=== PATIENT | female | born 1975 | race Caucasian/White ===

== ENCOUNTER 2017-09-12 18:50 | Emergency (ER) | payer SELFPAY ==
[2017-09-12] MEDS ORDERED: ONDANSETRON 4 MG TAB.RAPDIS PO ONE (20:58)
--- NOTE | 2017-09-12 20:59 | ER Document Report ---
HPI - HPI Patient complains to provider of: Nausea, vomiting diarrhea, need for work note Onset: This morning Onset/Duration: Gradual Quality of pain: No pain Pain Level: Denies Context: Patient presents complaining of nausea vomiting and diarrhea that started today. Patient states she has vomited 4 times and had diarrhea 5 times today. Last emesis was 6 hours ago. Patient does complain of some mild left lower back pain and some urinary frequency. Patient denies any fever. Patient denies any abdominal tenderness. 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 Associated Symptoms: Diarrhea, Nausea, Vomiting. denies: Chest pain, Fever Exacerbated by: Denies Relieved by: Denies Similar symptoms previously: No Recently seen / treated by doctor: No - ROS ROS below otherwise negative: Yes Systems Reviewed and Negative: Yes All other systems reviewed and negative - CONSTITUTIONAL Constitutional: DENIES: Fever, Chills - RESPIRATORY Respiratory: DENIES: Trouble Breathing, Coughing - GASTROINTESTINAL Gastrointestinal: REPORTS: Nausea, Patient vomiting, Diarrhea. DENIES: Abdominal Pain, Constipation, Black / Bloody Stools - URINARY Urinary: REPORTS: Frequency. DENIES: Dysuria, Urgency - MUSCULOSKELETAL Musculoskeletal: REPORTS: Back Pain. DENIES: Extremity pain Past Medical History - General Information source: Patient - Social History Smoking Status: Current Every Day Smoker Smoking Education Provided: Yes - For at least 3 minutes Frequency of alcohol use: None Drug Abuse: None Occupation: [employer] Lives with: Friend Family History: Reviewed & Not Pertinent Patient has suicidal ideation: No Patient has homicidal ideation: No - Past Medical History Cardiac Medical History: Reports: Hx Hypertension Renal/ Medical History: Denies: Hx Peritoneal Dialysis Musculoskeltal Medical History: Reports Hx Arthritis - Rheumatoid arthritis Past Surgical History: Reports: Hx Gynecologic Surgery, Hx Tubal Ligation Vertical Provider Document - CONSTITUTIONAL Agree With Documented VS: Yes Exam Limitations: No Limitations General Appearance: WD/WN, No Apparent Distress - INFECTION CONTROL TRAVEL OUTSIDE OF THE [place] IN LAST 30 DAYS: No - HEENT HEENT: Atraumatic, Normocephalic - NECK Neck: Normal Inspection, Supple - RESPIRATORY Respiratory: Breath Sounds Normal, No Respiratory Distress O2 Sat by Pulse Oximetry: 98 - CARDIOVASCULAR Cardiovascular: Regular Rate, Regular Rhythm, No Murmur - GI/ABDOMEN Gastrointestinal: Abdomen Soft, Abdomen Non-Tender, No Organomegaly, Normal Bowel Sounds - BACK Back: Normal Inspection. negative: CVA Tenderness-Right, CVA Tenderness-Left - MUSCULOSKELETAL/EXTREMETIES Musculoskeletal/Extremeties: CLARISSA MILLER - NEURO Level of Consciousness: Awake, Alert, Appropriate Motor/Sensory: No Motor Deficit - DERM Integumentary: Warm, Dry, No Rash Course - Re-evaluation Re-evalutation: 09/12/17 Patient without any abdominal tenderness. Patient states primary reason for visit tonight was for a note for her employer. Patient nontoxic in appearance. Discussed worsening symptoms that patient should return immediately for. Patient verbalized understanding and is agreeable with plan of care. - Vital Signs Vital signs: Temp Pulse Resp BP Pulse Ox 98 F 99 16 144/86 H 98 09/12/17 19:10 09/12/17 19:10 09/12/17 19:10 09/12/17 19:10 09/12/17 19:10 - Laboratory Laboratory results interpreted by me: 09/12/17 21:53 Labs- Entire Visit 09/12/17 20:10 Urine Color YELLOW Urine Appearance SLIGHTLY-CLOUDY Urine pH 5.0 Ur Specific [place] 1.021 Urine Protein NEGATIVE Urine Glucose (UA) NEGATIVE Urine Ketones NEGATIVE Urine Blood NEGATIVE Urine Nitrite NEGATIVE Urine Bilirubin NEGATIVE Urine Urobilinogen NEGATIVE Ur Leukocyte Esterase NEGATIVE Urine WBC (Auto) 1 Urine RBC (Auto) 1 Squamous Epi Cells Auto 1 Urine Mucus (Auto) RARE Urine Ascorbic Acid NEGATIVE Discharge - Discharge Clinical Impression: Hx of essential hypertension, Nausea vomiting and diarrhea Condition: Stable Disposition: HOME, SELF-CARE Instructions: Antinausea Medication ([facility]), Diarrhea, Nonspecific ([facility]), Viral Syndrome ([facility]), Vomiting ([facility]) Additional Instructions: Return immediately for any new or worsening symptoms Followup with your primary care provider, call tomorrow to make a followup appointment Stay well-hydrated Prescriptions: Promethazine HCl [Phenergan 25 mg Tablet] 25 mg PO Q6H PRN #12 tablet PRN Reason: Forms: Return to Work Referrals: CHAPINCITO GAY [Primary Care Provider] - 09/15/17
[2017-09-12 21:44] LABS: APPEARANCE,URINE SLIGHTLY-CLOUDY; BILIRUBIN,URINE NEGATIVE (NEGATIVE); GLUCOSE, URINE NEGATIVE (NEGATIVE); KETONES,URINE NEGATIVE (NEGATIVE); LEUKOCYTE ESTERASE,URINE NEGATIVE (NEGATIVE); NITRITE,URINE NEGATIVE (NEGATIVE); PROTEIN,URINE NEGATIVE (NEGATIVE); URINE SPECIFIC GRAVITY 1.021; UROBILINOGEN,URINE NEGATIVE mg/dL (<2.0)
[2017-09-12 22:05] VITALS: BP 126/86
== END 2017-09-12 22:07 | disposition home or self-care (01) ==
LOC: ER 18:50
DX: I10 Essential (primary) hypertension (principal); R11.2 Nausea with vomiting, unspecified; R19.7 Diarrhea, unspecified; M54.5 Low back pain; R35.0 Frequency of micturition; F17.200 Nicotine dependence, unspecified, uncomplicated
CPT/HCPCS: 99284; 81001; S0119

== ENCOUNTER 2018-03-26 11:19 | Emergency (ER) | payer SELFPAY ==
[2018-03-26 11:27] VITALS: BP 112/65
--- NOTE | 2018-03-26 11:55 | ER Document Report ---
ED General - General Chief Complaint: Flu Symptoms Stated Complaint: FLU LIKE SYMPTOMS Time Seen by Provider: 03/26/18 11:40 Notes: Chief complaint: Viral syndrome History of complain:( obtained from----patient) 42 years old female presents today with last 2-3 day history of general body aches and pain nauseous vomited couple of times and also had some loose stools 3. She missed her work. Needed a work note to go back. Denies any fever but had chills on and off. Denies any cough chest pain shortness of breath. Denies any abdominal pain. Denies any dysuria frequency urgency. Onset: Gradual Duration: 3 days Severity: Mild Quality: Dull Context: Viral infection Exacerbating factor and relieving factors: REVIEW OF SYSTEMS: CONSTITUTIONAL : Denies fever, chills, or sweats. Denies recent illness. EENT: Denies eye, ear, throat, or mouth pain or symptoms. Denies nasal or sinus congestion or discharge. Denies throat, tongue, or mouth swelling or difficulty swallowing. CARDIOVASCULAR: Denies chest pain. Denies palpitations or racing or irregular heart beat. Denies ankle edema. RESPIRATORY: Denies cough, cold, or chest congestion. Denies shortness of breath, difficulty breathing, or wheezing. GASTROINTESTINAL: Denies distention. Denies nausea, vomiting, or diarrhea. Denies blood in vomitus, stools, or per rectum. Denies black, tarry stools. Denies constipation. GENITOURINARY: Denies difficulty urinating, painful urination, burning, frequency, blood in urine, or discharge. FEMALE GENITOURINARY: Denies vaginal bleeding, heavy or abnormal periods, irregular periods. Denies vaginal discharge or odor. MUSCULOSKELETAL: Denies back or neck pain or stiffness. Denies joint pain or swelling. SKIN: Denies rash, lesions or sores. HEMATOLOGIC : Denies easy bruising or bleeding. LYMPHATIC: Denies swollen, enlarged glands. NEUROLOGICAL: Denies confusion or altered mental status. Denies passing out or loss of consciousness. Denies dizziness or lightheadedness. Denies headache. Denies weakness or paralysis or loss of use of either side. Denies problems with gait or speech. Denies sensory loss, numbness, or tingling. Denies seizures. PSYCHIATRIC: Denies anxiety or stress. Denies depression, suicidal ideation, or homicidal ideation. ALL OTHER SYSTEMS REVIEWED AND NEGATIVE. PHYSICAL EXAMINATION: GENERAL: Well-appearing, well-nourished and in no acute distress. Appears comfortable not in any major distress HEAD: Atraumatic, normocephalic. EYES: Pupils equal round and reactive to light, extraocular movements intact, conjunctiva are normal. ENT: Nares patent, oropharynx clear without exudates. Moist mucous membranes. NECK: Normal range of motion, supple without lymphadenopathy LUNGS: Breath sounds clear to auscultation bilaterally and equal. No wheezes rales or rhonchi. HEART: Regular rate and rhythm without murmurs ABDOMEN: Soft, nontender, nondistended abdomen. No guarding, no rebound. No masses appreciated. Examination of genitals-deferred Musculoskeletal: Normal range of motion, no pitting or edema. No cyanosis. NEUROLOGICAL: Cranial nerves grossly intact. Normal speech, normal gait. Normal sensory, motor exams PSYCH: Normal mood, normal affect. SKIN: Warm, Dry, normal turgor, no rashes or lesions noted. Dictation was performed using [employer] voice recognition software TRAVEL OUTSIDE OF THE [place] IN LAST 30 DAYS: No - HPI Notes: Dictated - Related Data Allergies/Adverse Reactions: cephalexin [From Keflex] Allergy (Verified 03/26/18 11:40) amoxicillin Adverse Reaction (Verified 03/26/18 11:40) Past Medical History - Social History Smoking Status: Current Every Day Smoker Chew tobacco use (# tins/day): No Frequency of alcohol use: Occasional Drug Abuse: None Family History: Reviewed & Not Pertinent Patient has suicidal ideation: No Patient has homicidal ideation: No - Past Medical History Cardiac Medical History: Reports: Hx Hypertension Renal/ Medical History: Denies: Hx Peritoneal Dialysis Musculoskeltal Medical History: Reports Hx Arthritis - Rheumatoid arthritis Past Surgical History: Reports: Hx Gynecologic Surgery, Hx Tubal Ligation Review of Systems - Review of Systems Notes: Dictated Physical Exam - Vital signs Vitals: Temp Pulse Resp BP Pulse Ox 99.0 F 99 18 112/65 98 03/26/18 11:26 03/26/18 11:26 03/26/18 11:26 03/26/18 11:26 03/26/18 11:26 - Notes Notes: Dictated Course - Re-evaluation Re-evalutation: 03/26/18 11:48 Been asked to drink lots of water, and given work note - Vital Signs Vital signs: Temp Pulse Resp BP Pulse Ox 99.0 F 99 18 112/65 98 03/26/18 11:26 03/26/18 11:26 03/26/18 11:26 03/26/18 11:26 03/26/18 11:26 Discharge - Discharge Clinical Impression: Viral infection Condition: Fair Disposition: HOME, SELF-CARE Instructions: Viral Syndrome ([facility]) Prescriptions: Ondansetron [Zofran Odt 4 mg Tablet] 1 - 2 tab PO Q4H PRN #15 tab.rapdis PRN Reason: For Nausea/Vomiting Referrals: CHAPINCITO GAY [Primary Care Provider] - Follow up as needed
== END 2018-03-26 11:54 | disposition home or self-care (01) ==
LOC: ER 11:19
DX: B34.9 Viral infection, unspecified (principal); R11.2 Nausea with vomiting, unspecified; R19.4 Change in bowel habit; R68.83 Chills (without fever); R52 Pain, unspecified; F17.200 Nicotine dependence, unspecified, uncomplicated; I10 Essential (primary) hypertension; Z88.1 Allergy status to other antibiotic agents
CPT/HCPCS: 99283

== ENCOUNTER 2018-06-22 14:26 | Emergency (ER) | payer SELFPAY ==
--- NOTE | 2018-06-22 16:02 | ER Document Report ---
ED Medical Screen (RME) - General Chief Complaint: Dizziness Stated Complaint: PAIN ALL OVER Time Seen by Provider: 06/22/18 16:02 Notes: 42-year-old female to the emergency department for heart racing, fever, chills, dizziness, chest pain bilaterally and abdominal pain all over. Symptoms have been getting worse over the last 2 days. Denies any dysuria or difficulty with urination. No recent surgeries. Has a history of rheumatoid arthritis but not on any biologic agents. I have greeted and performed a rapid initial assessment of this patient. A comprehensive ED assessment and evaluation of the patient, analysis of test results and completion of the medical decision making process will be conducted by additional ED providers. TRAVEL OUTSIDE OF THE [place] IN LAST 30 DAYS: No - Related Data Allergies/Adverse Reactions: cephalexin [From Keflex] Allergy (Verified 06/22/18 14:27) amoxicillin Adverse Reaction (Verified 06/22/18 14:27) Past Medical History - General Information source: Patient - Past Medical History Cardiac Medical History: Reports: Hx Hypertension Renal/ Medical History: Denies: Hx Peritoneal Dialysis Musculoskeltal Medical History: Reports Hx Arthritis - Rheumatoid arthritis Past Surgical History: Reports: Hx Gynecologic Surgery, Hx Tubal Ligation Review of Systems - Review of Systems Notes: Review of systems positive for the following: Fever, chills, sweats, chest pain , abdominal pain, dizziness, tachycardia Physical Exam - Vital signs Vitals: Temp Pulse Resp BP Pulse Ox 101.3 F H 139 H 24 H 130/72 H 97 06/22/18 14:31 06/22/18 14:31 06/22/18 14:31 06/22/18 14:31 06/22/18 14:31 Interpretation: Tachycardic, Febrile - Respiratory Respiratory status: No respiratory distress Chest status: Nontender Breath sounds: Normal Chest palpation: Normal - Cardiovascular Rhythm: Tachycardia Heart sounds: Normal auscultation Murmur: No - Abdominal Inspection: Normal Distension: No distension Bowel sounds: Normal Tenderness: Tender - All diffuse tenderness Organomegaly: No organomegaly Course - Vital Signs Vital signs: Temp Pulse Resp BP Pulse Ox 101.3 F H 139 H 24 H 130/72 H 97 06/22/18 14:31 06/22/18 14:31 06/22/18 14:31 06/22/18 14:31 06/22/18 14:31
[2018-06-22] MEDS ORDERED: KETOROLAC TROMETHAMINE INJ/PF 30 MG/1 ML SDV IV ONE (16:12)
[2018-06-22] MEDS: RINGERS SOLUTION,LACTATED 1,000 ML IV PRN ×2 (16:48→19:36)
[2018-06-22 16:58] LABS: ABSOLUTE BASOPHILS # (AUTO) 0.1 10^3/uL (0.0-0.2); ABSOLUTE LYMPHOCYTES (AUTO) 1.4 10^3/uL (0.5-4.7); ABSOLUTE MONOCYTES (AUTO) 1.4 10^3/uL (0.1-1.4); ABSOLUTE NEUT (AUTO) 11.5 10^3/uL (1.7-8.2); BASOPHILS % (AUTO) 0.4 % (0-2); EOSINOPHILS % (AUTO) 0.1 % (0-6); HEMATOCRIT 43.1 % (36.0-47.0); HEMOGLOBIN 15.2 g/dL (12.0-15.5); LYMPHOCYTES % (AUTO) 9.9 % (13-45); MEAN CORPUSCULAR HEMOGLOBIN 30.9 pg (27.0-33.4); MEAN CORPUSCULAR HGB CONC 35.2 g/dL (32.0-36.0); MEAN CORPUSCULAR VOLUME 88 fl (80-97); MONOCYTES % (AUTO) 9.6 % (3-13); PLATELET COUNT 257 10^3/uL (150-450); RED BLOOD COUNT 4.91 10^6/uL (3.72-5.28); TOTAL CELLS COUNTED % (AUTO) 100 %; WHITE BLOOD COUNT 14.4 10^3/uL (4.0-10.5)
[2018-06-22 17:24] LABS: ALANINE AMINOTRANSFERASE 10 U/L (9-52); ALKALINE PHOSPHATASE 71 U/L (38-126); ANION GAP 12 (5-19); ASPARTATE AMINO TRANSFERASE 19 U/L (14-36); BILIRUBIN,DIRECT 0.4 mg/dL (0.0-0.4); BILIRUBIN,TOTAL 0.6 mg/dL (0.2-1.3); BLOOD UREA NITROGEN 9 mg/dL (7-20); CALCIUM 9.2 mg/dL (8.4-10.2); CARBON DIOXIDE 23 mmol/L (22-30); CHLORIDE 100 mmol/L (98-107); GLUCOSE 112 mg/dL (75-110); LIPASE 23.1 U/L (23-300); POTASSIUM 3.5 mmol/L (3.6-5.0); SODIUM 134.8 mmol/L (137-145); TOTAL PROTEIN 8.2 g/dL (6.3-8.2)
--- NOTE | 2018-06-22 17:50 | RADIOLOGY REPORT (SQ) ---
EXAM DESCRIPTION: ACUTE ABDOMEN SERIES COMPLETED DATE/TIME: 06/22/2018 5:17 pm REASON FOR STUDY: abd pain,chest pain COMPARISON: None. NUMBER OF VIEWS: One view. TECHNIQUE: Supine radiographic image of the abdomen acquired. LIMITATIONS: None. FINDINGS: BOWEL GAS PATTERN: Non-obstructive bowel gas pattern. No dilated loops. CALCIFICATIONS: No suspicious calcifications. SOFT TISSUES: No gross mass or suggestion of organomegaly. HARDWARE: None in the abdomen. BONES: No acute fracture. No worrisome bone lesions. OTHER: No other significant finding. IMPRESSION: NO RADIOGRAPHIC EVIDENCE FOR ACUTE ABDOMINAL DISEASE. TECHNICAL DOCUMENTATION: JOB ID: [id number] [place]-72 2010 [employer]- All Rights Reserved Reading location - IP/workstation name: [email or web address]
[2018-06-22 19:03] LABS: APPEARANCE,URINE SLIGHTLY-CLOUDY; BILIRUBIN,URINE NEGATIVE (NEGATIVE); COLOR,URINE AMBER; GLUCOSE, URINE NEGATIVE (NEGATIVE); KETONES,URINE TRACE mg/dL (NEGATIVE); LEUKOCYTE ESTERASE,URINE LARGE (NEGATIVE); NITRITE,URINE POSITIVE (NEGATIVE); PROTEIN,URINE 30 mg/dL (NEGATIVE); URINE SPECIFIC GRAVITY 1.013
[2018-06-22] MEDS ORDERED: ACETAMINOPHEN 325 MG TABLET PO ONE (19:09)
[2018-06-22] MEDS ORDERED: CIPROFLOXACIN 400 MG/D5W RTU 400 MG/200 ML RTUPB IV ONE (19:22)
[2018-06-22 20:54] LABS: T.VAGINALIS (WET MOUNT) NO TRICHOMONAS SEEN; WBCS (WET MOUNT) FEW WBCS SEEN; YEAST (WET MOUNT) NO YEAST SEEN
[2018-06-22] MEDS ORDERED: NORMAL SALINE 1000 ML 1,000 ML IV ONE (21:16)
[2018-06-22] MEDS ORDERED: AZITHROMYCIN 250 MG TABLET PO ONE (22:04)
--- NOTE | 2018-06-22 22:11 | ER Document Report ---
ED General - General Chief Complaint: Dizziness Stated Complaint: PAIN ALL OVER Time Seen by Provider: 06/22/18 16:02 TRAVEL OUTSIDE OF THE [place] IN LAST 30 DAYS: No - HPI Patient complains to provider of: Feeling unwell Notes: Patient coming in for evaluation of fevers chills diffuse myalgias vaginal pain. Patient states ongoing for the last 2 days. Patient states decreased p.o. intake. Patient states recently moved to a new house approximately 1-2 months ago has a history of rheumatoid arthritis list of her medications at her old house. Patient denies any new pets recent antibiotics patient states she is sexually active at this time no history of STDs in the past. Patient denies any vaginal discharge or dysuria. Denies any flank pain specifically stating that she aches all over. Denies taking any Tylenol or Motrin today - Related Data Allergies/Adverse Reactions: cephalexin [From Keflex] Allergy (Verified 06/22/18 14:27) amoxicillin Adverse Reaction (Verified 06/22/18 14:27) Past Medical History - General Information source: Patient - Social History Smoking Status: Unknown if Ever Smoked Family History: Reviewed & Not Pertinent Patient has suicidal ideation: No Patient has homicidal ideation: No - Past Medical History Cardiac Medical History: Reports: Hx Hypertension Renal/ Medical History: Denies: Hx Peritoneal Dialysis Musculoskeletal Medical History: Reports Hx Arthritis - Rheumatoid arthritis Past Surgical History: Reports: Hx Gynecologic Surgery, Hx Tubal Ligation Review of Systems - Review of Systems Constitutional: Fever, Malaise, Weakness EENT: No symptoms reported Cardiovascular: No symptoms reported Respiratory: No symptoms reported Gastrointestinal: No symptoms reported Genitourinary: No symptoms reported Female Genitourinary: No symptoms reported Musculoskeletal: Muscle pain Skin: No symptoms reported Hematologic/Lymphatic: No symptoms reported Neurological/Psychological: No symptoms reported -: Yes All other systems reviewed and negative Physical Exam - Vital signs Vitals: Temp Pulse Resp BP Pulse Ox 101.3 F H 139 H 24 H 130/72 H 97 06/22/18 14:31 06/22/18 14:31 06/22/18 14:31 06/22/18 14:31 06/22/18 14:31 Interpretation: Normal - General General appearance: Appears well, Alert - HEENT Head: Normocephalic, Atraumatic Eyes: Normal Pupils: PERRL - Respiratory Respiratory status: No respiratory distress Chest status: Nontender Breath sounds: Normal Chest palpation: Normal - Cardiovascular Rhythm: Regular Heart sounds: Normal auscultation Murmur: No - Abdominal Inspection: Normal Distension: No distension Bowel sounds: Normal Tenderness: Nontender Organomegaly: No organomegaly - Genitourinary External exam: Normal Speculum exam: Cervix closed - Moderate amount of white discharge from cervix Vaginal bleeding: None Bimanuel exam: Normal - Back Back: Normal, Nontender - Extremities General upper extremity: Normal inspection, Nontender, Normal color, Normal ROM , Normal temperature General lower extremity: Normal inspection, Nontender, Normal color, Normal ROM , Normal temperature, Normal weight bearing. No: Shaq's sign - Neurological Neuro grossly intact: Yes Cognition: Normal Orientation: AAOx4 Drummond Coma Scale Eye Opening: Spontaneous Thomas Coma Scale Verbal: Oriented Thomas Coma Scale Motor: Obeys Commands Thomas Coma Scale Total: 15 Speech: Normal Motor strength normal: LUE, RUE, LLE, RLE Sensory: Normal - Psychological Associated symptoms: Normal affect, Normal mood - Skin Skin Temperature: Warm Skin Moisture: Dry Skin Color: Normal Course - Re-evaluation Re-evalutation: 06/22/18 23:57 Patient white count 14 a urinalysis showing signs significant for a urinary tract infection with no flank pain at this time do not feel patient has pyelonephritis. This pelvic examination does show a moderate amount of clear discharge from cervix concern for socially transmitted disease. Patient was given a dose of IV Cipro and 2 g of azithromycin as of the patient is allergic to Keflex and amoxicillin. 2 g of azithromycin should cover patient for gonorrhea and chlamydia. Ciprofloxacin should cover the patient for UTI. Patient's vital signs improved greatly after IV fluids and antipyretics. Patient able tolerate p.o. we will discharge home. - Vital Signs Vital signs: Temp Pulse Resp BP Pulse Ox 99.5 F 139 H 20 104/88 H 100 06/22/18 21:00 06/22/18 14:31 06/22/18 22:31 06/22/18 22:31 06/22/18 22:31 - Laboratory Result Diagrams: 06/22/18 16:43 06/22/18 16:43 Laboratory results interpreted by me: 06/22/18 06/22/18 06/22/18 16:43 16:43 18:04 WBC 14.4 H Seg Neutrophils % 80.0 H Lymphocytes % 9.9 L Absolute Neutrophils 11.5 H Sodium 134.8 L Potassium 3.5 L Glucose 112 H Urine Protein 30 H Urine Ketones TRACE H Urine Blood SMALL H Urine Nitrite POSITIVE H Urine Urobilinogen 2.0 H Ur Leukocyte Esterase LARGE H N.gonorrhoeae DNA (PCR) 06/22/18 20:25 WBC Seg Neutrophils % Lymphocytes % Absolute Neutrophils Sodium Potassium Glucose Urine Protein Urine Ketones Urine Blood Urine Nitrite Urine Urobilinogen Ur Leukocyte Esterase N.gonorrhoeae DNA (PCR) DETECTED H Discharge - Discharge Clinical Impression: Dehydration Fever Qualifiers: Fever type: unspecified Qualified Code(s): R50.9 - Fever, unspecified UTI (urinary tract infection) Qualifiers: Urinary tract infection type: site unspecified Hematuria presence: without hematuria Qualified Code(s): N39.0 - Urinary tract infection, site not specified Condition: Good Disposition: HOME, SELF-CARE Instructions: Ciprofloxacin ([facility]), Dehydration ([facility]), Fever ([facility]), Urinary Tract Infection ([facility]) Additional Instructions: Follow-up with your primary care physician. Return to ER symptoms worsen. Take medications as prescribed. Prescriptions: Ibuprofen [Motrin 600 mg Tablet] 600 mg PO Q8HP PRN #21 tablet PRN Reason: Ciprofloxacin HCl [Cipro 500 mg Tablet] 500 mg PO BID #20 tablet Ondansetron [Zofran Odt] 4 mg PO Q6 PRN #30 tab.rapdis PRN Reason: For Nausea/Vomiting Forms: Return to Work
[2018-06-22 22:28] LABS: CHLAM PCR NOT DETECTED (NOT DETECT); GON PCR DETECTED (NOT DETECT)
[2018-06-22 22:35] VITALS: BP 104/88
== END 2018-06-22 22:36 | disposition home or self-care (01) ==
LOC: ER 14:26
DX: E86.0 Dehydration (principal); N39.0 Urinary tract infection, site not specified; M79.1 Myalgia; R42 Dizziness and giddiness; R10.2 Pelvic and perineal pain; I10 Essential (primary) hypertension; Z88.3 Allergy status to other anti-infective agents; Z88.0 Allergy status to penicillin; Z98.51 Tubal ligation status
CPT/HCPCS: 99284; 96361; 96374; 36415; 87040; 87086; 87210; 83690; 85025; 81025; 87088; 80053; 81001; 87186; 87491; 87591; 83605; 74022; J1885; J7030; J7120; J0744

== ENCOUNTER 2019-01-17 22:46 | Emergency (ER) | payer SELFPAY ==
[2019-01-18] MEDS ORDERED: IBUPROFEN 600 MG TABLET PO ONE (01:09)
--- NOTE | 2019-01-18 02:03 | ER Document Report ---
ED Extremity Problem, Upper - General TRAVEL OUTSIDE OF THE [place] IN LAST 30 DAYS: No - General Chief Complaint: Arm Pain Stated Complaint: RIGHT ARM SWELLING/PAIN Time Seen by Provider: 01/18/19 00:06 Primary Care Provider: [facility] [Provider Group] - Follow up as needed Notes: Patient is a 43-year-old female presents to the emergency department for swelling and pain to her dorsal aspect of her right hand. Patient states tonight after work she noticed some generalized swelling noted to the dorsal aspect of her right hand. States since then the swelling has gotten worse as well as the pain has increased. Patient states she was lifting and moving a lot of things at work but is denying any known injury or trauma. Patient's denying any other complaints to include fever, numbness or tingling in any extremity. Past medical history: Rheumatoid arthritis Medications: None Allergies: Keflex, penicillin (PATRICE WALTER) - Related Data Allergies/Adverse Reactions: cephalexin [From Keflex] Allergy (Verified 01/17/19 23:59) amoxicillin Adverse Reaction (Verified 01/17/19 23:59) Penicillins Adverse Reaction (Verified 01/17/19 23:59) Past Medical History - General Information source: Patient - Social History Smoking Status: Unknown if Ever Smoked Family History: Reviewed & Not Pertinent Patient has suicidal ideation: No Patient has homicidal ideation: No - Past Medical History Cardiac Medical History: Reports: Hx Hypertension Renal/ Medical History: Denies: Hx Peritoneal Dialysis Musculoskeletal Medical History: Reports Hx Arthritis - Rheumatoid arthritis Past Surgical History: Reports: Hx Gynecologic Surgery, Hx Tubal Ligation Review of Systems - Review of Systems Constitutional: See HPI EENT: No symptoms reported Cardiovascular: No symptoms reported Respiratory: No symptoms reported Gastrointestinal: No symptoms reported Genitourinary: No symptoms reported Female Genitourinary: No symptoms reported Musculoskeletal: See HPI Skin: See HPI Hematologic/Lymphatic: No symptoms reported Neurological/Psychological: No symptoms reported Physical Exam - Vital signs Vitals: Temp Pulse Resp BP Pulse Ox 98.1 F 102 H 19 117/81 96 01/17/19 22:50 01/17/19 22:50 01/17/19 22:50 01/17/19 22:50 01/17/19 22:50 - Notes Notes: GENERAL: Alert, interacts well. No acute distress. HEAD: Normocephalic, atraumatic. EYES: Pupils equal, round, and reactive to light. Extraocular movements intact. ENT: Oral mucosa moist, tongue midline. NECK: Full range of motion. Supple. Trachea midline. LUNGS: Clear to auscultation bilaterally, no wheezes, rales, or rhonchi. No respiratory distress. HEART: Regular rate and rhythm. No murmur ABDOMEN: Soft, non-tender. Non-distended. Bowel sounds present in all 4 quadrants. EXTREMITIES: Moves all 4 extremities spontaneously. normal radial and dorsalis pedis pulses bilaterally. No cyanosis. Swelling and erythema noted dorsal aspect of right hand. Patient is able to make a fist and fully extend all 5 fingers on the right hand. Patient has full flexion extension of the right wrist. Also supination and pronation are intact. Superficial abrasion noted over the MCP joint middle finger dorsally. BACK: no cervical, thoracic, lumbar midline tenderness. No saddle anesthesia, normal distal neurovascular exam. NEUROLOGICAL: Alert and oriented x3. Normal speech. cranial nerves II through XI I grossly intact PSYCH: Normal affect, normal mood. SKIN: Warm, dry, normal turgor. No rashes or lesions noted. (PATRICE WALTER) Course - Re-evaluation Re-evalutation: Erythema and swelling did not appear to past wrist joint. X-rays reveal no signs of abnormalities or fractures. Discussed this case my attending Dr. Baires who agrees to treat this patient with oral antibiotics as the redness and swelling may be infectious in nature. Discussed close follow-up with primary care provider in the next 24-48 hours. Also discussed return precautions to the emergency room for wound recheck should she not be able to get up with her primary care provider. Patient is afebrile, stable for discharge. (PATRICE WALTER) 01/18/19 02:30 PA asked me to evaluate the patient's hand. The patient does have some swelling to the right hand. 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 She does have a small abrasion over the dorsum of the hand. There is no swelling redness or pain into the fingers itself. I do not suspect tenosynovitis. Patient has full flexion-extension of the fingers or hand without difficulty. Suspect she may have early signs of cellulitis of the hand therefore we will place her antibiotic. She does have a history of rheumatoid arthritis but says this is nothing at all like her previous rheumatoid arthritis flares. Encouraged her to return in 2 days we can reevaluate and make sure it is improving. Patient agrees with plan will be discharged home. Dictation of this chart was performed using voice recognition software; therefore, there may be some unintended grammatical errors. (HYACINTH BAIRES) - Vital Signs Vital signs: Temp Pulse Resp BP Pulse Ox 98.1 F 102 H 19 117/81 96 01/17/19 22:50 01/17/19 22:50 01/17/19 22:50 01/17/19 22:50 01/17/19 22:50 Discharge - Discharge Clinical Impression: Cellulitis Qualifiers: Site of cellulitis: extremity Site of cellulitis of extremity: upper extremity Laterality: right Qualified Code(s): L03.113 - Cellulitis of right upper limb Condition: Stable Disposition: HOME, SELF-CARE Instructions: Cellulitis ([facility]) Additional Instructions: As we discussed you have been seen and treated in the emergency department for a skin infection. Please take antibiotics as prescribed. Please also follow-up with your primary care provider or return to the emergency room within the next 2 days for wound recheck. Should the redness, swelling, pain increase before then please immediately return to the emergency room. Prescriptions: Clindamycin HCl [Cleocin 150 mg Capsule] 450 mg PO Q8 7 Days capsule Forms: Return to Work Referrals: [facility] [Provider Group] - Follow up as needed
--- NOTE | 2019-01-18 02:13 | RADIOLOGY REPORT (SQ) ---
EXAM DESCRIPTION: XR HAND 3 OR MORE VIEWS COMPLETED DATE/TME: 01/18/2019 01:08 CLINICAL HISTORY: 43 years, Female, swelling/pain COMPARISON: None. FINDINGS: No fracture or dislocation. Mild degenerative changes in the radiocarpal joint. Soft tissues are unremarkable. IMPRESSION: No acute abnormality.
[2019-01-18] MEDS ORDERED: CLINDAMYCIN HCL 150 MG CAPSULE PO ONE ×2 (02:22)
[2019-01-18 03:27] VITALS: BP 104/73
== END 2019-01-18 03:27 | disposition home or self-care (01) ==
LOC: ER 22:46
DX: L03.113 Cellulitis of right upper limb (principal); S60.511A Abrasion of right hand, initial encounter; X58.XXXA Exposure to other specified factors, initial encounter; I10 Essential (primary) hypertension; Z88.1 Allergy status to other antibiotic agents; Z88.0 Allergy status to penicillin
CPT/HCPCS: 99283

== ENCOUNTER 2019-04-24 17:17 | Emergency (ER) | payer SELFPAY ==
--- NOTE | 2019-04-24 18:03 | ER Document Report ---
ED Medical Screen (RME) - General Chief Complaint: Urinary Problem Stated Complaint: URINARY ISSUE/RASH UNDER BREASTS Time Seen by Provider: 04/24/19 17:59 Mode of Arrival: Ambulatory Information source: Patient Notes: Patient presents emergency department with lower abdominal pelvic pain urinary frequency pain when she voids vaginal discharge. She had 2 menses this past month. Also complains of rash under her breast for the past few months. I have greeted and performed a rapid initial assessment of this patient. A comprehensive ED assessment and evaluation of the patient, analysis of test results and completion of the medical decision making process will be conducted by additional ED providers. Dictation of this chart was performed using voice recognition software; therefore, there may be some unintended grammatical errors. TRAVEL OUTSIDE OF THE [place] IN LAST 30 DAYS: No - Related Data Allergies/Adverse Reactions: cephalexin [From Keflex] Allergy (Verified 04/24/19 17:25) amoxicillin Adverse Reaction (Verified 04/24/19 17:25) Penicillins Adverse Reaction (Verified 04/24/19 17:25) Past Medical History - Social History Chew tobacco use (# tins/day): No Frequency of alcohol use: None Drug Abuse: None - Past Medical History Cardiac Medical History: Reports: Hx Hypertension Renal/ Medical History: Denies: Hx Peritoneal Dialysis Musculoskeltal Medical History: Reports Hx Arthritis - Rheumatoid arthritis Past Surgical History: Reports: Hx Gynecologic Surgery, Hx Tubal Ligation Physical Exam - Vital signs Vitals: Temp Pulse Resp BP Pulse Ox 98.0 F 108 H 20 126/81 H 97 04/24/19 17:30 04/24/19 17:30 04/24/19 17:30 04/24/19 17:30 04/24/19 17:30 Course - Vital Signs Vital signs: Temp Pulse Resp BP Pulse Ox 98.0 F 108 H 20 126/81 H 97 04/24/19 17:30 04/24/19 17:30 04/24/19 17:30 04/24/19 17:30 04/24/19 17:30
[2019-04-24 18:51] LABS: ABSOLUTE BASOPHILS # (AUTO) 0.1 10^3/uL (0.0-0.2); ABSOLUTE EOSINOPHILS # (AUTO) 0.1 10^3/uL (0.0-0.6); ABSOLUTE LYMPHOCYTES (AUTO) 2.7 10^3/uL (0.5-4.7); ABSOLUTE MONOCYTES (AUTO) 0.7 10^3/uL (0.1-1.4); ABSOLUTE NEUT (AUTO) 6.3 10^3/uL (1.7-8.2); BASOPHILS % (AUTO) 1.2 % (0-2); EOSINOPHILS % (AUTO) 1.5 % (0-6); HEMATOCRIT 43.9 % (36.0-47.0); HEMOGLOBIN 15.5 g/dL (12.0-15.5); MEAN CORPUSCULAR HEMOGLOBIN 31.4 pg (27.0-33.4); MEAN CORPUSCULAR HGB CONC 35.3 g/dL (32.0-36.0); MEAN CORPUSCULAR VOLUME 89 fl (80-97); MONOCYTES % (AUTO) 7.2 % (3-13); PLATELET COUNT 303 10^3/uL (150-450); RED BLOOD COUNT 4.92 10^6/uL (3.72-5.28); RED CELL DISTRIBUTION WIDTH 12.7 % (11.5-14.0); SEGMENTED NEUTROPHILS % (AUTO) 63.1 % (42-78); TOTAL CELLS COUNTED % (AUTO) 100 %; WHITE BLOOD COUNT 9.9 10^3/uL (4.0-10.5)
[2019-04-24 19:09] LABS: ALANINE AMINOTRANSFERASE 21 U/L (9-52); ALBUMIN 4.2 g/dL (3.5-5.0); ALKALINE PHOSPHATASE 78 U/L (38-126); ANION GAP 9 (5-19); ASPARTATE AMINO TRANSFERASE 16 U/L (14-36); BILIRUBIN,DIRECT 0.3 mg/dL (0.0-0.4); BILIRUBIN,TOTAL 0.4 mg/dL (0.2-1.3); BLOOD UREA NITROGEN 16 mg/dL (7-20); CALCIUM 9.7 mg/dL (8.4-10.2); CARBON DIOXIDE 24 mmol/L (22-30); CHLORIDE 105 mmol/L (98-107); GLUCOSE 85 mg/dL (75-110); POTASSIUM 4.3 mmol/L (3.6-5.0); TOTAL PROTEIN 7.1 g/dL (6.3-8.2)
[2019-04-24 21:13] LABS: APPEARANCE,URINE CLOUDY; BILIRUBIN,URINE NEGATIVE (NEGATIVE); COLOR,URINE YELLOW; GLUCOSE, URINE NEGATIVE (NEGATIVE); KETONES,URINE TRACE mg/dL (NEGATIVE); LEUKOCYTE ESTERASE,URINE LARGE (NEGATIVE); NITRITE,URINE NEGATIVE (NEGATIVE); PROTEIN,URINE 100 mg/dL (NEGATIVE); URINE SPECIFIC GRAVITY 1.018; UROBILINOGEN,URINE NEGATIVE mg/dL (<2.0)
[2019-04-24 21:41] LABS: T.VAGINALIS (WET MOUNT) NO TRICHOMONAS SEEN; WBCS (WET MOUNT) NO WBCS SEEN; YEAST (WET MOUNT) NO YEAST SEEN
[2019-04-24] MEDS ORDERED: AZITHROMYCIN 250 MG TABLET PO ONE (21:50)
[2019-04-24] MEDS ORDERED: CIPROFLOXACIN HCL 500 MG TABLET PO ONE (21:51)
--- NOTE | 2019-04-24 21:59 | ER Document Report ---
ED General - General Chief Complaint: Urinary Problem Stated Complaint: URINARY ISSUE/RASH UNDER BREASTS Time Seen by Provider: 04/24/19 17:59 Mode of Arrival: Ambulatory Notes: Patient is a 43-year-old female without chronic medical problems, presents with complaints of 1 month of progressively worsening lower abdominal discomfort, vaginal discharge, vaginal bleeding, and states that she has also had urinary frequency and hesitancy. Symptoms started gradually, have been worsening since onset. Describes having intense, spasming type pain after she urinates but denies any distinct burning with urination. Notes a history of similar symptoms in the past with urinary tract infections. She denies fever or constitutional symptoms. No nausea or vomiting. Denies focal abdominal pain. Has not seen her general physician regarding today's concerns. Denies flank pain. TRAVEL OUTSIDE OF THE [place] IN LAST 30 DAYS: No - Related Data Allergies/Adverse Reactions: cephalexin [From Keflex] Allergy (Verified 04/24/19 17:25) amoxicillin Adverse Reaction (Verified 04/24/19 17:25) Penicillins Adverse Reaction (Verified 04/24/19 17:25) Past Medical History - General Information source: Patient - Social History Smoking Status: Current Every Day Smoker Chew tobacco use (# tins/day): No Frequency of alcohol use: None Drug Abuse: None Lives with: Spouse/Significant other Family History: Reviewed & Not Pertinent Patient has suicidal ideation: No Patient has homicidal ideation: No - Past Medical History Cardiac Medical History: Reports: Hx Hypertension Renal/ Medical History: Denies: Hx Peritoneal Dialysis Musculoskeletal Medical History: Reports Hx Arthritis - Rheumatoid arthritis Past Surgical History: Reports: Hx Gynecologic Surgery, Hx Tubal Ligation Review of Systems - Review of Systems Notes: Constitutional: Negative for fever. HENT: Negative for sore throat. Eyes: Negative for visual changes. Cardiovascular: Negative for chest pain. Respiratory: Negative for shortness of breath. Gastrointestinal: Negative for abdominal pain, vomiting or diarrhea. Genitourinary: Positive for vaginal discharge, vaginal bleeding. Positive for dysuria and urinary frequency Musculoskeletal: Negative for back pain. Skin: Negative for rash. Neurological: Negative for headaches, weakness or numbness. 10 point ROS negative except as marked above and in HPI. Physical Exam - Vital signs Vitals: Temp Pulse Resp BP Pulse Ox 98.0 F 108 H 20 126/81 H 97 04/24/19 17:30 04/24/19 17:30 04/24/19 17:30 04/24/19 17:30 04/24/19 17:30 Interpretation: Tachycardic Notes: PHYSICAL EXAMINATION: GENERAL: Well-appearing, well-nourished and in no acute distress. HEAD: Atraumatic, normocephalic. EYES: Pupils equal round and reactive to light, extraocular movements intact, sclera anicteric, conjunctiva are normal. ENT: nares patent, oropharynx clear without exudates. Moist mucous membranes. NECK: Normal range of motion, supple without lymphadenopathy LUNGS: Breath sounds clear to auscultation bilaterally and equal. No wheezes rales or rhonchi. HEART: Regular rate and rhythm without murmurs ABDOMEN: Soft, nontender, normoactive bowel sounds. No guarding, no rebound. No masses appreciated. Pelvic: No cervical motion tenderness, no cervical discharge. No focal adnexal tenderness. EXTREMITIES: Normal range of motion, no pitting or edema. No cyanosis. NEUROLOGICAL: No focal neurological deficits. Moves all extremities spo ntaneously and on command. PSYCH: Anxious SKIN: Warm, Dry, normal turgor, no rashes or lesions noted. Course - Re-evaluation Re-evalutation: 04/24/19 21:53 Patient presents with symptoms consistent with an acute cystitis. Vitals wnl. No history of fever, flank pain, or constitution symptoms to suggest ascending infection at this time. Patient is well in appearance, tolerating oral intake without difficulty. No focal abdominal tenderness to suggest acute appendicitis, biliary pathology, acute pancreatitis, tubo-ovarian abscesses, or pelvic inflammatory disease. Pelvic exam without evidence of pelvic inflammatory disease, no cervical motion tenderness. No vaginal discharge. Patient did request empiric treatment for gonorrhea and chlamydia. Has a history of difficult to breathing and hives with cephalosporins. Treated with 2 g of azithromycin for coverage of gonorrhea and chlamydia. Has been started on ciprofloxacin given inability to take penicillins or cephalosporins. Urine culture sent. At this time will discharge with return precautions and follow-up recommendations. Verbal discharge instructions given a the bedside and opportunity for questions given. Medication warnings reviewed. Patient is in agreement with this plan and has verbalized understanding of return precautions and the need for primary care follow-up in the next 24-72 hours. - Vital Signs Vital signs: Temp Pulse Resp BP Pulse Ox 98.0 F 108 H 20 126/81 H 97 04/24/19 17:30 04/24/19 17:30 04/24/19 17:30 04/24/19 17:30 04/24/19 17:30 - Laboratory Result Diagrams: 04/24/19 18:36 04/24/19 18:36 Laboratory results interpreted by me: 04/24/19 20:55 Urine Protein 100 H Urine Ketones TRACE H Urine Blood MODERATE H Ur Leukocyte Esterase LARGE H Discharge - Discharge Clinical Impression: Pelvic pain, Bilateral lower abdominal cramping Urinary tract infection Qualifiers: Urinary tract infection type: acute cystitis Hematuria presence: with hematuria Qualified Code(s): N30.01 - Acute cystitis with hematuria Condition: Good Disposition: HOME, SELF-CARE Additional Instructions: Your urine shows findings consistent with a urinary tract infection. Please take all the antibiotics as directed even if your symptoms have improved. Please follow-up with your primary care physician as needed. Return to emergency room if you develop fever >101F, persistent vomiting, become lethargic, have severe pain in your sides, or any other symptoms that are concerning to you. You need to use protection every time you have sex. Failure to do so can result in transmission of infections or unintended . You have been treated for an sexually transmitted infection (STI) today. Please return if you develop abdominal pain, fever, persistent vomiting, or any other symptoms that are concerning to you. Prescriptions: Ciprofloxacin HCl [Cipro 500 mg Tablet] 500 mg PO BID #14 tablet
[2019-04-24 22:17] VITALS: BP 141/93
[2019-04-24 22:46] LABS: CHLAM PCR NOT DETECTED (NOT DETECT)
== END 2019-04-24 22:33 | disposition home or self-care (01) ==
LOC: ER 17:17
DX: N30.01 Acute cystitis with hematuria (principal); R10.2 Pelvic and perineal pain; R10.31 Right lower quadrant pain; R10.32 Left lower quadrant pain; R39.198 Other difficulties with micturition; N89.8 Other specified noninflammatory disorders of vagina; N93.9 Abnormal uterine and vaginal bleeding, unspecified; R35.0 Frequency of micturition; R39.11 Hesitancy of micturition; F17.200 Nicotine dependence, unspecified, uncomplicated; I10 Essential (primary) hypertension
CPT/HCPCS: 36415; 80053; 81001; 81025; 85025; 87086; 87088; 87186; 87210; 87491; 87591; 99283